=== PATIENT | male | born 1940 ===

== ENCOUNTER 2018-01-18 17:21 | Inpatient (IN) | payer OTHER ==
[~2018-01-18] VITALS: Ht 167.6 cm; Wt 72.6 kg
[2018-01-18] MEDS ORDERED: COZAAR50 MG (17:40)
[2018-02-04] MEDS ORDERED: MEDROLPACK PO (12:42)
[2018-02-04] MEDS ORDERED: MUCINEX600 MG PO (12:42)
[2018-02-04] MEDS ORDERED: INTESTINEX680 M1 PO (12:42)
[2018-02-04] MEDS ORDERED: ALBUTEROL2.5 MG/3 M IH (12:42)
[2018-02-04] MEDS ORDERED: LEVAQUIN750 MG PO (12:42)
[2018-02-04] MEDS ORDERED: PANTOPRAZOLE SO40 MG PO (12:42)
[2018-02-04] MEDS ORDERED: COZAAR50 MG PO (12:42)
[2018-02-04] MEDS ORDERED: BUDESONIDE0.5 MG/2 M IH (12:42)
== END 2018-02-04 13:18 | disposition home or self-care (01) | DRG 378 ==
LOC: ER 17:21 → MEDI 19:16 → SEC-K 19:16 → MEDJ 19:33 → MEDI 19:39
PROC: 3E0336Z Introduction of Nutritional Substance into Peripheral Vein, Percutaneous Approach (ICD-10-PCS; 2018-01-18)
PROC: 02HV33Z Insertion of Infusion Device into Superior Vena Cava, Percutaneous Approach (ICD-10-PCS; 2018-01-19)
PROC: BW25Y0Z Computerized Tomography (CT Scan) of Chest, Abdomen and Pelvis using Other Contrast, Unenhanced and Enhanced (ICD-10-PCS; 2018-01-24)
PROC: 0W9G30Z Drainage of Peritoneal Cavity with Drainage Device, Percutaneous Approach (ICD-10-PCS; principal; 2018-01-25)
PROC: 3E0F7GC Introduction of Other Therapeutic Substance into Respiratory Tract, Via Natural or Artificial Opening (ICD-10-PCS; 2018-01-29)
PROC: 4A033R1 Measurement of Arterial Saturation, Peripheral, Percutaneous Approach (ICD-10-PCS; 2018-01-29)
PROC: BW25Y0Z Computerized Tomography (CT Scan) of Chest, Abdomen and Pelvis using Other Contrast, Unenhanced and Enhanced (ICD-10-PCS; 2018-01-31)
DX: K57.21 Diverticulitis of large intestine with perforation and abscess with bleeding (principal); J45.41 Moderate persistent asthma with (acute) exacerbation; J98.11 Atelectasis; B37.0 Candidal stomatitis; I11.9 Hypertensive heart disease without heart failure; E78.00 Pure hypercholesterolemia, unspecified; K64.8 Other hemorrhoids; B96.29 Other Escherichia coli [E. coli] as the cause of diseases classified elsewhere; B96.89 Other specified bacterial agents as the cause of diseases classified elsewhere; D64.89 Other specified anemias; Z87.891 Personal history of nicotine dependence; E09.65 Drug or chemical induced diabetes mellitus with hyperglycemia; T38.0X5A Adverse effect of glucocorticoids and synthetic analogues, initial encounter

== ENCOUNTER 2018-05-24 11:26 | Inpatient (IN) | payer OTHER ==
[~2018-05-24] VITALS: Ht 167.6 cm; Wt 73.9 kg
[~2018-05-24 11:26] MED LIST: ALBUTEROL2.5 MG/3 M IH; BUDESONIDE0.5 MG/2 M IH; COZAAR50 MG; COZAAR50 MG PO; INTESTINEX680 M1 PO; LEVAQUIN750 MG PO; MEDROLPACK PO; MUCINEX600 MG PO; PANTOPRAZOLE SO40 MG PO
== END 2018-06-03 18:32 | disposition home or self-care (01) | DRG 330 ==
LOC: SURG 05-31 05:50 → O/R 05-31 05:50 → SURG 05-31 10:47 → SURH 05-31 14:30 → SURG 06-03 18:32
PROVIDERS: ADMIT Colon & Rectal Surgery
PROC: 0WUF47Z Supplement Abdominal Wall with Autologous Tissue Substitute, Percutaneous Endoscopic Approach (ICD-10-PCS; 2018-05-31)
PROC: 0TQB4ZZ Repair Bladder, Percutaneous Endoscopic Approach (ICD-10-PCS; 2018-05-31)
PROC: 0DJD8ZZ Inspection of Lower Intestinal Tract, Via Natural or Artificial Opening Endoscopic (ICD-10-PCS; 2018-05-31)
PROC: 3E0F7GC Introduction of Other Therapeutic Substance into Respiratory Tract, Via Natural or Artificial Opening (ICD-10-PCS; 2018-05-31)
PROC: 0T9B70Z Drainage of Bladder with Drainage Device, Via Natural or Artificial Opening (ICD-10-PCS; 2018-05-31)
PROC: 0DTN4ZZ Resection of Sigmoid Colon, Percutaneous Endoscopic Approach (ICD-10-PCS; principal; 2018-05-31 17:30)
DX: K57.20 Diverticulitis of large intestine with perforation and abscess without bleeding (principal); K92.1 Melena; N99.72 Accidental puncture and laceration of a genitourinary system organ or structure during other procedure; J45.31 Mild persistent asthma with (acute) exacerbation; N32.1 Vesicointestinal fistula; I11.9 Hypertensive heart disease without heart failure; E78.00 Pure hypercholesterolemia, unspecified

== ENCOUNTER 2018-05-24 14:54 | Outpatient (CLI) | payer OTHER | END 2018-05-24 15:00 | disposition HB | LOC: LAB 14:54 | DX: D68.8 Other specified coagulation defects (principal) ==

== ENCOUNTER 2022-08-03 13:21 | Inpatient (IN) | payer OTHER ==
[~2022-08-03] VITALS: Ht 152.4 cm; Wt 72.1 kg
[2022-08-26] MEDS ORDERED: PYRIDIUM100 MG PO (08:24)
[2022-08-26] MEDS ORDERED: INTESTINEX680 M1 PO (08:25)
[2022-08-26] MEDS ORDERED: COZAAR50 MG PO (08:25)
[2022-08-26] MEDS ORDERED: FUSION PLUS CA1 EACH PO (08:28)
[2022-08-26] MEDS ORDERED: FOLIC ACID1 MG PO (08:28)
[2022-08-26] MEDS ORDERED: VITAMIN B-121000 MC2 SL (08:28)
== END 2022-08-26 11:35 | disposition home or self-care (01) | DRG 327 ==
LOC: ER 13:21 → ICU-2 17:24 → ICU 17:24 → SURH 08-23 20:23
PROVIDERS: Colon & Rectal Surgery; ADMIT Internal Medicine; ATTEND Internal Medicine
PROC: BW21ZZZ Computerized Tomography (CT Scan) of Abdomen and Pelvis (ICD-10-PCS; 2022-08-03)
PROC: 0W3P8ZZ Control Bleeding in Gastrointestinal Tract, Via Natural or Artificial Opening Endoscopic (ICD-10-PCS; 2022-08-04)
PROC: 30233N1 Transfusion of Nonautologous Red Blood Cells into Peripheral Vein, Percutaneous Approach (ICD-10-PCS; 2022-08-04)
PROC: B24BYZZ Ultrasonography of Heart with Aorta using Other Contrast (ICD-10-PCS; 2022-08-06)
PROC: 3E1G88Z Irrigation of Upper GI using Irrigating Substance, Via Natural or Artificial Opening Endoscopic (ICD-10-PCS; 2022-08-07)
PROC: 3E0G8GC Introduction of Other Therapeutic Substance into Upper GI, Via Natural or Artificial Opening Endoscopic (ICD-10-PCS; 2022-08-07)
PROC: 0DC68ZZ Extirpation of Matter from Stomach, Via Natural or Artificial Opening Endoscopic (ICD-10-PCS; 2022-08-07)
PROC: 30233L1 Transfusion of Nonautologous Fresh Plasma into Peripheral Vein, Percutaneous Approach (ICD-10-PCS; 2022-08-08)
PROC: 30233K1 Transfusion of Nonautologous Frozen Plasma into Peripheral Vein, Percutaneous Approach (ICD-10-PCS; 2022-08-08)
PROC: XW0G886 Introduction of Mineral-based Topical Hemostatic Agent into Upper GI, Via Natural or Artificial Opening Endoscopic, New Technology Group 6 (ICD-10-PCS; 2022-08-11)
PROC: 0W3P8ZZ Control Bleeding in Gastrointestinal Tract, Via Natural or Artificial Opening Endoscopic (ICD-10-PCS; 2022-08-11)
PROC: 02HV33Z Insertion of Infusion Device into Superior Vena Cava, Percutaneous Approach (ICD-10-PCS; 2022-08-12)
PROC: 30243N1 Transfusion of Nonautologous Red Blood Cells into Central Vein, Percutaneous Approach (ICD-10-PCS; 2022-08-12)
PROC: 0DB60Z3 Excision of Stomach, Open Approach, Vertical (ICD-10-PCS; principal; 2022-08-18 20:45)
PROC: BD15YZZ Fluoroscopy of Upper GI using Other Contrast (ICD-10-PCS; 2022-08-21)
PROC: 4A12X4Z Monitoring of Cardiac Electrical Activity, External Approach (ICD-10-PCS; 2022-08-23)
DX: K25.0 Acute gastric ulcer with hemorrhage (principal); C49.A2 Gastrointestinal stromal tumor of stomach; C82.13 Follicular lymphoma grade II, intra-abdominal lymph nodes; D62 Acute posthemorrhagic anemia; N39.0 Urinary tract infection, site not specified; T80.1XXA Vascular complications following infusion, transfusion and therapeutic injection, initial encounter; K92.0 Hematemesis; K92.1 Melena; B96.5 Pseudomonas (aeruginosa) (mallei) (pseudomallei) as the cause of diseases classified elsewhere; K52.9 Noninfective gastroenteritis and colitis, unspecified; R55 Syncope and collapse; I95.89 Other hypotension; Y95 Nosocomial condition; N32.89 Other specified disorders of bladder; R53.81 Other malaise; K31.A0 Gastric intestinal metaplasia, unspecified; K80.20 Calculus of gallbladder without cholecystitis without obstruction; K57.90 Diverticulosis of intestine, part unspecified, without perforation or abscess without bleeding; I11.9 Hypertensive heart disease without heart failure; I25.10 Atherosclerotic heart disease of native coronary artery without angina pectoris; E78.00 Pure hypercholesterolemia, unspecified; Z87.891 Personal history of nicotine dependence

== ENCOUNTER 2024-07-25 18:22 | Emergency (ER) | payer OTHER ==
[~2024-07-25] VITALS: Ht 167.6 cm; Wt 68.9 kg
[~2024-07-25 18:22] MED LIST changes: +FOLIC ACID1 MG PO; +FUSION PLUS CA1 EACH PO; +PYRIDIUM100 MG PO; +VITAMIN B-121000 MC2 SL
[2024-07-25] MEDS ORDERED: OLMESARTAN MEDO40 MG PO (18:37)
[2024-07-25] MEDS ORDERED: SIMVASTATIN5 MG PO (18:37)
[2024-07-25] MEDS ORDERED: KETOROLAC TROMETHAMINE 30 MG VIAL IV ONE (19:45)
[2024-07-25] MEDS ORDERED: 0.9 % SODIUM CHLORIDE 1,000 ML IV ONE (19:45)
[2024-07-25 20:50] LABS: HEMATOCRIT 34.2 % (39.0-48.0); HEMOGLOBIN 11.7 g/dL (13-16.00); MEAN CELL VOLUME 103.6 fL (80.0-100.00); MEAN CORPUSCULAR HEMOGLOBIN 35.4 pg (27.00-32.0); MEAN CORPUSCULAR HGB CONC 34.2 g/dl (32.0-36.0); PLATELET COUNT 138 K/uL (150-450); RED CELL DISTRIBUTION WIDTH 13.2 % (11.5-14.5)
[2024-07-25 21:09] LABS: PH,URINE 6.5 (5.0-8.0); URINE APPEARANCE Clear; URINE BILIRRUBIN Negative (NEGATIVE); URINE BLOOD Negative; URINE COLOR Yellow; URINE GLUCOSE Negative (NEGATIVE); URINE KETONE Trace (NEGATIVE); URINE LEUKOCYTE Negative; URINE NITRATE Negative; URINE PROTEIN Negative (NEGATIVE); URINE UROBILINOGEN 0.2 E.U./dl
[2024-07-25 21:11] LABS: URINE BACTERIA 0 uL (0.0-1933); URINE EPITHELIAL CELLS 0.3 uL (0.0-38.8); URINE RBC 0.1 uL (0.0-20.8); URINE WBC 1.2 uL (0.0-23.2)
[2024-07-25 21:17] LABS: INR 0.97; PARTIAL THROMBOPLASTIN TIME 26.2 SECONDS (22.0-34.0); PROTHROMBIN TIME 10.6 SECONDS (9.0-11.5)
[2024-07-25 21:23] LABS: ALBUMIN 3.8 gm/dL (3.4-5.0); BILIRUBIN TOTAL 0.43 mg/dL (0.3-1.2); CALCIUM 9.4 mg/dL (8.5-10.1); CREATININE SERUM 1.57 mg/dL (0.70-1.30); GFR 42.2; GLOBULINA 2.7 G/DL (2.4-3.5); POTASSIUM 4.97 mEq/L (3.5-5.1); TOTAL PROTEIN 6.5 gm/dL (6.4-8.2)
[2024-07-26] MEDS ORDERED: LEVSIN/SL0.125 MG SL (01:54)
== END 2024-07-26 02:00 ==
LOC: ER 18:22
PROVIDERS: General Practice
DX: R11.10 Vomiting, unspecified (principal); R10.32 Left lower quadrant pain; R10.9 Unspecified abdominal pain; I10 Essential (primary) hypertension
CPT/HCPCS: 36415; 74177; 96365; 96366; 99284; J1885; J7030; Q9965